=== PATIENT | female | born 1970 | race Caucasian/White ===

== ENCOUNTER 2019-11-15 07:07 | Outpatient (CLI) | payer OTHER, SELFPAY ==
--- NOTE | 2019-11-15 07:13 | MM_ITS ---
WS: [id number] BILATERAL SCREENING DIGITAL MAMMOGRAM WITH CAD HISTORY: SCREENING COMPARISON: 11/11/2018 and 11/04/2017 Bilateral CC and MLO views submitted. Computer aided detection analyzed. Breast composition: There are scattered areas of fibroglandular density. No suspicious masses, microc alcifications or architectural distortion. MM/[place] [id number] IMPRESSION: BI-RADS: 1-Negative FOLLOW UP: 1 Year Follow-up
== END 2019-11-15 07:08 | disposition home or self-care (01) ==
LOC: RADSHAW 07:09
PROVIDERS: PCP Family Medicine; Visit Provider Family Medicine
DX: Z12.31 Encounter for screening mammogram for malignant neoplasm of breast (principal)
CPT/HCPCS: 77067

== ENCOUNTER → 2019-12-30 15:29 | Outpatient (BNVA) | payer OTHER, SELFPAY | PROVIDERS: PCP Family Medicine; Referring Provider Dermatology; Visit Provider Podiatrist Foot & Ankle Surgery | DX: M21.071 Valgus deformity, not elsewhere classified, right ankle (principal) | CPT/HCPCS: 73630 ==

== ENCOUNTER 2020-10-24 07:40 | Emergency (ER) | payer OTHER, SELFPAY ==
[2020-10-24] VITALS (10 sets, daily range): BP systolic 113–148; BP diastolic 78–100; PULSE 66–90; RESP 16–18; TEMP 36.6; O2SAT 90–97; BMI 43.2
--- NOTE | 2020-10-24 08:08 | XR_ITS ---
WS: [id number] Portable AP upright chest, 10/24/2020 Clinical Data: Cough and SOB Comparison: PA and lateral chest, 07/23/2017. Findings: There is a minimal patchy opacity overlying the right diaphragm which is probably in the ri ght lower lobe. This opacity could represent minimal pneumonia. There is slight opacity overlying the left diaphragm. The upper lobes are clear. The heart is normal. No pneumothorax is seen. XR/XR chest 1V portable [id number] Impression: Bilateral basilar pulmonary opacities which could represent pneumonia.
--- NOTE | 2020-10-24 08:10 | W.ED.COVID ---
HPI - COVID General: Chief Complaint: COVID symptoms Stated Complaint: cough, Covid +, SOB Time Seen by Provider: 10/24/20 08:05 Triage information: Has fever, cough or shortness of breath. No known COVID + exposure last 14 days History of Present Illness: HPI Narrative: Patient is a 50-year-old female comes to the ED with shortness of breath upon exertion. Patient tested positive for COVID-19 last , October 19. She has generalized body aches and also a cough. She describes the cough as dry but occasionally productive with yellow sputum. She has been having nausea vomiting and diarrhea as well since Friday. She has not been able to keep any food or fluids down since Friday and has vomited multiple times for the past couple days. Denies fever, chest pains, abdominal pain or bladder symptoms. COVID 19 common symptoms: positive chills, non-productive cough, dyspnea, body aches, headache(s), nausea, vomiting and diarrhea; negative fever(s), productive cough, fatigue, throat pain or nasal congestion COVID 19 other sytmptoms: negative chest pain COVID Results: No Data to Display Review of Systems Const: Reports: chills and body aches; Denies: fever(s) or fatigue Eyes: Denies: change in vision or eye discomfort ENMT: Denies: throat pain, odynophagia, nasal discharge or nasal congestion Card: Denies: chest pain, palpitations, edema, swelling of feet/ankles, dyspnea on exertion or orthopnea Resp: Reports: dyspnea and non-productive cough; Denies: productive cough GI: Reports: nausea, vomiting and diarrhea; Denies: abdominal pain, constipation or hematochezia : Denies: flank pain, dysuria or hematuria Musc: Denies: neck pain, back pain or extremity swelling Skin/Breast: Denies: rash or new lesions Neuro: Reports: headache(s); Denies: numbness in extremities or weakness in extremities PFS ED PFSH: Medical History Patient denies significant medical history Physical Exam Const: COMMON NORMALS: no acute distress, patient oriented x3 and alert GENERAL APPEARANCE: cooperative and comfortable NUTRITIONAL APPEARANCE: obese HENMT: COMMON NORMALS: normocephalic HEAD & SCALP: normocephalic MOUTH: moist mucous membranes abnormal Details: parched THROAT: posterior oropharynx normal and uvula midline Eye: COMMON NORMALS: Equal, round and reactive pupils present PUPIL: Yes Equal, round and reactive pupils present Neck/C-Spine: COMMON NORMALS: supple GENERAL: Yes normal visual inspection Resp: COMMON NORMALS: normal respiratory effort, No retractions, No use of accessory muscles and clear to auscultation bilaterally EFFORT & INSPECTION: Yes able to speak in complete sentences, No tachypneic, No respiratory distress and No labored AUSCULTATION: clear to auscultation bilaterally Cardio: COMMON NORMALS: regular rate, regular rhythm, S1 normal heart sound present, S2 normal heart sound present, No gallops present (Cardio), No clicks present (Cardio), No murmurs present (Cardio) and Peripheral pulses 2+ throughout RATE: regular rate RHYTHM: regular rhythm HEART SOUNDS: S1 normal heart sound present and S2 normal heart sound present PERIPHERAL PULSES: Peripheral pulses 2+ throughout GI: COMMON NORMALS: Normal to inspection, nondistended, normoactive bowel sounds present, Soft to palpation, non-tender and no masses PALPATION: Yes Soft to palpation : COMMON NORMALS: Yes no CVA tenderness BLADDER/KIDNEY EXAM: Yes no CVA tenderness Back/Pelvis: COMMON NORMALS: no CVA tenderness Extremity: COMMON NORMALS: normal to inspection Neuro: COMMON NORMALS: patient oriented x3 and moves all extremities SENSORIUM/ORIENTATION: Yes alert Skin: GENERAL SKIN EXAM: dry skin Course Reevaluation(s): Reevaluation #1: After patient received IV fluids and Zofran she says she is feeling a lot better and her nausea is resolved. Patient is still at the 93 to 95% O2 saturation on 2 L via nasal cannula. I discussed with patient that I will be putting a home oxygen order in and sending her home on oxygen. Time: 10:31 Vital Signs: Vital signs: Vital Signs Temperature 97.8 F 10/24/20 07:42 Pulse Rate 66 10/24/20 14:37 Respiratory Rate 18 10/24/20 12:59 Blood Pressure 143/100 10/24/20 14:37 Pulse Oximetry 97 10/24/20 14:37 MDM - COVID MDM Narrative: Medical decision making narrative: Patient is a 50-year-old female comes to the ED with nausea, vomiting and cough. Patient tested positive for COVID-19 on October 19. Patient appears nontoxic and in no acute distress. Her oral mucous membranes appear dry. Rest of exam is benign. Patient's O2 saturation was around 92% on room air and then she was placed on 2 L via nasal cannula and her O2 went up above 96%. Labs were unremarkable. Chest x-ray showed bilateral basilar pulmonary opacities which could represent pneumonia. EKG showed normal sinus rhythm, [address] segment elevation or depression seen. Home O2 eval was performed and patient qualified for 2 L of oxygen via nasal cannula and home order of oxygen was placed and sent home with patient at discharge. Patient was given IV fluids Decadron, azithromycin and Zofran while here in the ED her symptoms improved greatly. Patient diagnosed with COVID-19 and discharged home. She was sent home with a prescription for azithromycin, Decadron 6 mg p.o. daily, Zofran and home oxygen. Return to ED precautions given. Follow-up with PCP in 5 to 7 days for reevaluation. Patient understood and agreed with plan. Lab Data: Attestation: I reviewed the patient's lab results. Labs: Lab Results 10/24/20 10/24/20 10/24/20 Range/Units 09:26 09:26 09:26 WBC 6.1 (4.0-10.0) 10^3/ uL RBC 5.49 H (4.1-5.3) 10^6/u L Hgb 15.6 H (11.5-15.3) g/dL Hct 47.7 H (37.0-47.0) % MCV 86.9 (81-99) fL MCH 28.4 (28.0-34.0) pg MCHC 32.7 (30.0-36.0) g/dL RDW 13.8 (12.1-15.1) % Plt Count 176 (130-400) 10^3/c mm MPV 10.4 (7.4-10.4) fL Neut % (Auto) 68.9 % Lymph % (Auto) 20.4 % Swain % (Auto) 9.9 % Eos % (Auto) 0.0 % Baso % (Auto) 0.5 % Neut # (Auto) 4.23 (1.8-7.7) 10^3/u L Lymph # (Auto) 1.3 (0.8-4.8) 10^3/u L Swain # (Auto) 0.6 (0.2-0.9) 10^3/u L Eos # (Auto) 0.0 (0.0-0.8) 10^3/u L Baso # (Auto) 0.0 (0.0-0.1) 10^3/u L Nucleated RBC % (a uto) 0 % Nucleated RBCs # 0.0 /100WBC Specimen Type Sample Site ABG pH (7.35-7.45) ABG pCO2 (35-45) mmHg ABG pO2 (80.0-100.0) mmH g ABG HCO3 (22-26) mmol/L ABG O2 Saturation ABG Base Excess (-2.0-2.0) mmol/ L Mark Test A-a O2 Gradient (5-10) mmHg Hematocrit (37-47) % Hgb O2 Saturation (95-100) % Carboxyhemoglobin (0.4-20.1) %THgb Methemoglobin (0.4-1.5) % Total Hemoglobin (12-16) g/dL Ionized Calcium (1.1-1.4) mmol/L O2 Delivery Device O2 Liters/Min % FiO2 % Operations Planner ID Sodium 134 L (136-145) mmol/L Potassium 3.8 (3.5-5.1) mmol/L Chloride 100 (98-107) mmol/L Carbon Dioxide 25 (22-29) mmol/L Anion Gap 12.8 (5-19) BUN 9 (6-20) mg/dL Creatinine 0.7 (0.5-0.9) mg/dL GFR Calculation 88.6 L (90-130) mL/min Glucose 121 H (65-115) mg/dL Calculated Osmolal ity 278 L (285-295) mOsm/k g Calcium 8.4 L (8.5-10.5) mg/dL Total Bilirubin 0.9 (0.15-1.2) mg/dL AST 46 H (0-32) U/L ALT 45 H (0-33) U/L Alkaline Phosphata se 96 (35-105) IU/L Troponin T Baselin e 6 (0-10) ng/L Total Protein 7.2 (6.6-8.7) g/dL Albumin 4.1 (3.5-5.2) g/dL Globulin 3.1 (1.3-4.6) g/dL Lipase 24 (13-60) U/L 10/24/20 Range/Units 10:28 WBC (4.0-10.0) 10^3/ uL RBC (4.1-5.3) 10^6/u L Hgb (11.5-15.3) g/dL Hct (37.0-47.0) % MCV (81-99) fL MCH (28.0-34.0) pg MCHC (30.0-36.0) g/dL RDW (12.1-15.1) % Plt Count (130-400) 10^3/c mm MPV (7.4-10.4) fL Neut % (Auto) % Lymph % (Auto) % Swain % (Auto) % Eos % (Auto) % Baso % (Auto) % Neut # (Auto) (1.8-7.7) 10^3/u L Lymph # (Auto) (0.8-4.8) 10^3/u L Swain # (Auto) (0.2-0.9) 10^3/u L Eos # (Auto) (0.0-0.8) 10^3/u L Baso # (Auto) (0.0-0.1) 10^3/u L Nucleated RBC % (a uto) % Nucleated RBCs # /100WBC Specimen Type Arterial Sample Site Radial, right ABG pH 7.43 (7.35-7.45) ABG pCO2 35.8 (35-45) mmHg ABG pO2 91.4 (80.0-100.0) mmH g ABG HCO3 23.5 (22-26) mmol/L ABG O2 Saturation 98.1 ABG Base Excess -0.5 (-2.0-2.0) mmol/ L Mark Test Pos A-a O2 Gradient 8.2 (5-10) mmHg Hematocrit 45.7 (37-47) % Hgb O2 Saturation 96.6 (95-100) % Carboxyhemoglobin 0.9 (0.4-20.1) %THgb Methemoglobin 0.7 (0.4-1.5) % Total Hemoglobin 14.9 (12-16) g/dL Ionized Calcium 1.2 (1.1-1.4) mmol/L O2 Delivery Device Nc O2 Liters/Min 2.0 % FiO2 28.0 % Operations Planner ID Amh Sodium 138.0 (136-145) mmol/L Potassium 3.6 (3.5-5.1) mmol/L Chloride (98-107) mmol/L Carbon Dioxide (22-29) mmol/L Anion Gap (5-19) BUN (6-20) mg/dL Creatinine (0.5-0.9) mg/dL GFR Calculation (90-130) mL/min Glucose 124.0 H (65-115) mg/dL Calculated Osmolal ity (285-295) mOsm/k g Calcium (8.5-10.5) mg/dL Total Bilirubin (0.15-1.2) mg/dL AST (0-32) U/L ALT (0-33) U/L Alkaline Phosphata se (35-105) IU/L Troponin T Baselin e (0-10) ng/L Total Protein (6.6-8.7) g/dL Albumin (3.5-5.2) g/dL Globulin (1.3-4.6) g/dL Lipase (13-60) U/L Imaging Data: CXR: Attestation: I personally reviewed and interpreted this imaging study as follows: Radiologist's impression: [address] [address] XRay Report Signed Patient: Gloria Lamas Unit #: [id number] : 1970 Age/Sex: 50 / F ADM Date: 10/24/20 Loc: ER Room/Bed: Attending Dr: Ordering Provider/Ordering MD: Dread Cline Date of Service: 10/24/20 Procedure(s): XR chest 1V portable [id number] Accession Number(s): [id number] Report Number: [id number] WS: [id number] Portable AP upright chest, 10/24/2020 Clinical Data: Cough and SOB Comparison: PA and lateral chest, 07/23/2017. Findings: There is a minimal patchy opacity overlying the right diaphragm which is probably in the right lower lobe. This opacity could represent minimal pneumonia. There is slight opacity overlying the left diaphragm. The upper lobes are clear. The heart is normal. No pneumothorax is seen. XR/XR chest 1V portable [id number] Impression: Bilateral basilar pulmonary opacities which could represent pneumonia. Dictated By: Nadine Osuna MD Signed By: Nadine Osuna MD Signed Date/Time: 10/24/20838 DD/ 6 EKG Data: EKG 1: Attestation: I personally reviewed and interpreted this EKG as follows: EKG interpretation date: 10/24/20 Interpretation: Sinus rhythm, 81 bpm, no ST segment elevation depression seen. COVID Results: No Data to Display Discharge Plan Discharge Patient Disposition: Home Clinical Impression: COVID-19 Condition: Stable Prescriptions: New azithromycin 250 mg tablet 250 mg PO DAILY 4 Days Qty: 4 RF: 0 ondansetron 4 mg tablet,disintegrating 4 mg PO Q8H PRN (Reason: nausea and vomiting) Qty: 15 RF: 0 Decadron 6 mg tablet 6 mg PO DAILY 7 Days Qty: 7 RF: 0 No Action multivitamin Tablet 1 tab PO DAILY RF: 0 ibuprofen 200 mg Tablet 400 - 600 mg PO PRN RF: 0 omeprazole 20 mg capsule,delayed release(DR/EC) 20 mg PO BEDTIME RF: 0 desvenlafaxine succinate 25 mg tablet extended release 24 hr 25 mg PO BEDTIME RF: 0 Discharge Orders: Discharge ED (Routine); Ordered 10/24/20 Ordered By: Dread Cline Other Ambulatory Orders: DME: Oxygen (Order) Location: None Selected Ordered By: Dread Cline Referrals: Carolann Valencia MD [Primary Care Provider] - Discharge Diet: Regular Discharge Activity: Increase activity as tolerated Patient Instructions: Using Oxygen at Home (ED), Viral Syndrome (ED) Activity Restrictions/Additional Instructions: Follow-up with medical provider as directed in 5 to 7 days for reevaluation. Take medications as prescribed. Make sure you drink plenty of fluids and stay hydrated. Take [id number]-[id number] Tylenol or Motrin for any pain or fevers. Wear home oxygen continuously at 2 L. Return to the ER or your medical provider if condition worsens. Please read and understand discharge instructions. Thank you for choosing [facility] for your healthcare needs today. Please realize this is an emergency room and that we are providing you with a medical screening exam and this may not be complete and all inclusive of all the testing and or work up that you may need to determine your ailment or severity of your illness. It is very important that you follow up as instructed or that you return to the Emergency Department should you have concerns or if your condition changes or worsens in any way. Coding Level of Care Code ED Mud Mixer for John Fwd Exam Comprehensive
--- NOTE | 2020-10-24 08:26 | ECG_ITS ---
[facility] Test Date: 2020-10-24 Pat Name: Gloria Lamas Department: Room: Gender: Female Milieu Technician: : 1970 Requested By: Dread Cline Order Number: [id number] Ang MD: THIEN GEORGE Measurements Intervals [place] Rate: 81 P: 27 PA: 174 QRS: -14 QRSD: 96 T: 47 QT: 365 QTc: 425 Interpretive Statements SINUS RHYTHM MINIMAL VOLTAGE CRITERIA FOR LVH, CONSIDER NORMAL VARIANT [MEETS CRITERIA IN ONE OF: R(aVL), S(V1), R(V5), R(V5/V6)+S(V1)] Compared to ECG 01/30/2017 20:52:19 No significant changes Electronically Signed On 10-24-2020 22:32:24 CDT by THIEN GEORGE [email or web address]
[2020-10-24] MEDS: acetaminophen 500 mg Tablet 1000 MG PO (09:12)
[2020-10-24] MEDS: sodium chloride 0.9% 1,000 ML 999 ML IV (09:16)
[2020-10-24] MEDS: ondansetron 2 mg/ML SDV 2 mL 4 MG IVP (09:16)
[2020-10-24 09:42] LABS: Basophils % 0.5 %; Hematocrit 47.7 % (37.0-47.0); Hemoglobin 15.6 g/dL (11.5-15.3); Lymphocytes # 1.3 10^3/uL (0.8-4.8); Lymphocytes % 20.4 %; Mean Corpuscular HGB Conc 32.7 g/dL (30.0-36.0); Mean Corpuscular Hemoglobin 28.4 pg (28.0-34.0); Mean Corpuscular Volume 86.9 fL (81-99); Mean Platelet Volume 10.4 fL (7.4-10.4); Monocytes # 0.6 10^3/uL (0.2-0.9); Monocytes % 9.9 %; Neutrophils # 4.23 10^3/uL (1.8-7.7); Neutrophils % 68.9 %; Nucleated Red Blood Cells % 0 %; Platelet Count 176 10^3/cmm (130-400); Red Blood Count 5.49 10^6/uL (4.1-5.3); Red Cell Distribution Width 13.8 % (12.1-15.1); White Blood Count 6.1 10^3/uL (4.0-10.0)
[2020-10-24 09:59] LABS: Alanine Aminotransferase 45 U/L (0-33); Albumin Level 4.1 g/dL (3.5-5.2); Alkaline Phosphatase 96 IU/L (35-105); Anion Gap 12.8 (5-19); Aspartate Amino Transferase 46 U/L (0-32); Blood Urea Nitrogen 9 mg/dL (6-20); Calcium 8.4 mg/dL (8.5-10.5); Carbon Dioxide 25 mmol/L (22-29); Chloride 100 mmol/L (98-107); Globulin 3.1 g/dL (1.3-4.6); Glomerular Filtration Rate 88.6 mL/min (90-130); Glucose 121 mg/dL (65-115); Lipase 24 U/L (13-60); Osmolality Calculated 278 mOsm/kg (285-295); Potassium 3.8 mmol/L (3.5-5.1); Sodium 134 mmol/L (136-145); Total Bilirubin 0.9 mg/dL (0.15-1.2); Total Protein 7.2 g/dL (6.6-8.7)
[2020-10-24 10:14] LABS: Troponin(5th) Baseline 6 ng/L (0-10)
[2020-10-24 10:39] LABS: ABG PCO2 35.8 mmHg (35-45); ABG PH Result 7.43 (7.35-7.45); Alveolar-Arterial Oxygen Gradi 8.2 mmHg (5-10); Arterial Blood Gas Hematocrit 45.7 % (37-47); Base Excess ABG -0.5 mmol/L (-2.0-2.0); Blood Gas Allen Test Pos; Blood Gas Operator Identificat AMH; Blood Gas Sample Site Radial, right; Blood Gas Sample Type Arterial; Carboxyhemoglobin 0.9 %THgb (0.4-20.1); HCO3 ABG 23.5 mmol/L (22-26); HGB O2 Sat 96.6 % (95-100); Ionized Calcium Level - ABG 1.2 mmol/L (1.1-1.4); Methemoglobin 0.7 % (0.4-1.5); Oxygen Device NC; Oxygen Saturation ABG 98.1; PO2 ABG 91.4 mmHg (80.0-100.0); Potassium Level - ABG 3.6 mmol/L (3.5-5.0); Total Hemoglobin 14.9 g/dL (12-16)
[2020-10-24] MEDS: dexamethasone 10 mg/mL INJ IVP (11:09)
[2020-10-24] MEDS: azithromycin 250 mg Tablet 500 MG PO (11:09)
== END 2020-10-24 14:40 | disposition home or self-care (01) ==
PROVIDERS: Emergency Provider Physician Assistant; PCP Family Medicine
DX: U07.1 COVID-19 (principal)
CPT/HCPCS: 36600; 71045; 80051; 80053; 82330; 82805; 83690; 84484; 85025; 87040; 93005; 96361; 96374; 96375; 99284; J1100; J2405; J7030; Q0144

== ENCOUNTER → 2020-11-20 11:44 | Outpatient (BNVA) | payer OTHER, SELFPAY | PROVIDERS: PCP Family Medicine; Visit Provider Podiatrist Foot & Ankle Surgery | DX: M25.571 Pain in right ankle and joints of right foot (principal); S82.441A Displaced spiral fracture of shaft of right fibula, initial encounter for closed fracture; Z20.822 Contact with and (suspected) exposure to COVID-19 | CPT/HCPCS: 73610; 87635 ==

== ENCOUNTER 2020-11-23 05:31 | Day surgery (SDC) | payer OTHER, SELFPAY ==
[2020-11-22 10:19] VITALS: BMI 39.9
--- NOTE | 2020-11-23 | SCC_ITS ---
Procedure Done: Open reduction and internal fixation right ankle fracture CPT code 02338 5 seconds of fluoroscopic guidance, for a cumulative dose of 0.16 mGy, was provided to Dr. Torres by the radiology department. C-arm images of the RIGHT ankle were saved for the patient's permanent record. [facility]
--- NOTE | 2020-11-23 06:28 | W.PM.OPSUD ---
Surgery/Procedure H&P Update DATE OF PROCEDURE: November 23, 2020 DATE H&P PERFORMED: 11/20/20 H&P UPDATE INFORMATION: I have reviewed H&P completed within last 30 days, I have examined patient prior to procedure, No changes to prior documentation and H&P is in [facility] EMR on date indicated PREOP DIAGNOSIS: Right ankle fracture PLANNED PROCEDURE: Operation Date: 11/23/20 07:00 Proposed Procedures p ORIF Ankle 44188 S82.301A(Right) - Jameel Torres DPM
--- NOTE | 2020-11-23 06:34 | XR_ITS ---
WS: [id number] Right ankle, 3 views, 11/23/2020 Clinical Data: post op Comparison: Right ankle, 11/20/2020. Findings: A lateral plate has been applied to the distal right fibula with multiple orthopedic screws. The medi al malleolus is intact. There are lateral subcutaneous surgical tomy adjacent to the fibular plate . XR/XR ankle RT min 3V* [id number] Impression: Internal fixation of distal right fibular fracture.
--- NOTE | 2020-11-23 06:35 | PM.OP ---
Operative Report Date of procedure: November 23, 2020 Pre-op Diagnosis: Right ankle fracture Post-op diagnosis: same Post-op Findings: Right distal fibular fracture Procedure Done: Open reduction and internal fixation right ankle fracture CPT code 30447 Implants: Madison variax 3 with one third tubular plate and 3.5 mm locking and nonlocking screws. Specimens removed/disposition: None Pathology: none sent Surgeon: Jameel Torres D.P.M. Automatic Beading Lathe Operator: Rody Anesthesia: MAC Estimated blood loss: Less than 10 mL Tourniquet time: 34 minutes IV fluids: None Urine output: None Complications: None Findings: None Condition: stable Disposition: PACU Brief History: Patient is a pleasant 50-year-old female who sustained a right distal fibular fracture states that she was feeling weak due to COVID-19 and lost her balance and fell injuring her right ankle. Date of injury 11/12/2020. Consulting with her I discussed both surgical and nonsurgical treatment options her strong preference was to proceed with surgical intervention and her reasoning was that she did not want to delay any bony healing and take any additional time off work. Risks include pain, bleeding, numbness, infection, delayed healing, nonhealing, hardware failure, or hardware irritation, high likelihood of posttraumatic arthritis as a result of this injury. Need for possible bracing, anti-inflammatories and possible further surgical intervention in the future. Procedure: Under mild sedation the patient was brought to the operating room and placed on the operating table in supine position. A timeout was performed. Anesthesia was then administered by the anesthesia service. Of note popliteal block to the right lower extremity was performed per anesthesia service preoperatively. Well-padded pneumatic tourniquet applied to the right high calf. Saphenous nerve block was performed utilizing one-to-one mixture 1% lidocaine 0.5 sent Marcaine plain. Right lower extremity was scrubbed, prepped and draped utilizing normal aseptic technique and Esmarch bandage was utilized and tourniquet inflated to 250 mmHg. Total tourniquet time 34 minutes. Attention was directed to the lateral aspect of the right ankle where the distal fibula was palpated, directly over the distal fibula a linear longitudinal incision was made in parallel fashion through skin and dissection carried down through subcutaneous tissue to the layer of periosteum utilizing a combination of blunt and sharp technique. Care was taken to retract and preserve neurovascular tendinous structures. All bleeders were ligated and cauterized as necessary. A periosteal incision was made the distal fibula fracture was evacuated of its hematoma utilizing curettage and saline flush. This was reduced help held with a [id number] in the anterior fragmentary screw was inserted perpendicular to the fracture site utilizing standard AO technique this was a nonlocking 18 mm 3.5 mm Madison screw. Next utilizing standard AO technique a one third tubular plate was fixated with excellent bony apposition and compression noted. Positioning confirmed with intraoperative fluoroscopy. Ankle mortise was congruent, no screws violated ankle mortise, reduction of the fracture fragment appreciated in all 3 planes. Incision was flushed with saline and periosteum closed utilizing 2-0 Vicry, l subcutaneous tissue with 3-0 Vicryl and skin utilizing skin tomy. Incision site was dressed with Adaptic, sterile 4 x 4, Kerlix, Luis wrap and cam boot with ankle in neutral position. Tourniquet was plated and a prompt hyperemic response is noted to the distal digits of the right foot. Patient tolerated the procedure and anesthesia well was transferred to the PACU with vital signs stable and vascular status intact. Following a period of postoperative monitoring she will be discharged home is to remain nonweightbearing to the right lower extremity to elevate her right lower extremity at rest was given at home discharge information and follow-up as well as contact information on how to reach me should she have questions or concerns.
[2020-11-23] MEDS: clindamycin 600 MG/50 ML PREMIX 100 MG IV (07:03)
--- NOTE | 2020-11-23 07:08 | ANES.PREANE2 ---
Pre-Anesthetic Assessment Pre-Anesthetic Assessment: Height/Weight: Height 1.65 m Weight 108.862 kg Preop Diagnosis: Right ankle fracture Proposed Procedure: Operation Date: 11/23/20 07:00 Proposed Procedures p ORIF Ankle 18018 S82.301A(Right) - Jameel Torres DPM Was Beta Kristofer taken within 24 hours: N/A Was Clonidine taken within 24 hours: N/A Last intake: Intake Last Liquid Date 11/22/20 Last Liquid Time 23:30 Last Solid Date 11/22/20 Last Solid Time 19:00 Social: Social History: No alcohol and No tobacco Exam: Pre-Anes Outpt Exam: alert, oriented x 3, clear to auscultation bilaterally and regular rate & rhythm Airway: Cervical ROM: WNL MP: 2 Dentition: False History/ROS: No significant complaints Pulmonary: Pulmonary: None reported CV/HEM: CV/HEM: None reported : : None reported Hepatic: Hepatic: None reported GI: GI: None reported Metabolic: Metabolic: Morbid obesity Musc/skel: Musc/skel: None reported Neuropsych: Neuropsych: Anxiety Anesthetic Plan: ASA status: 3 Anesthesia: Anesthesia Evaluation, Eval. for regional block and Choice Risk of > 500 ml blood loss (7ml/kg in children): No PFSH Anesthesia PFSH: Medical History Patient denies significant medical history Social History Smoking and tobacco status: never smoked Data Anesthesia Cardiac Studies: No Data to Display
[2020-11-23] MEDS: lidocaine 1% INJ 20 mL INJECTION (07:20)
[2020-11-23 08:10] VITALS: BP 137/99; PULSE 78; RESP 8; TEMP 36.3; O2SAT 98
--- NOTE | 2020-11-23 08:11 | P.PCN_ITS ---
PACU note PACU note: VSS, Good respiratory effort, report to WHEEL PRESS CLERK Post-Anesthesia Exam: awake
--- NOTE | 2020-11-23 08:11 | PM.PACU ---
PACU note PACU note: VSS, Good respiratory effort, report to PRIVATE INVESTIGATOR Post-Anesthesia Exam: awake
[2020-11-23 08:14] VITALS: BP 149/82; PULSE 81; RESP 16; O2SAT 97
[2020-11-23 08:15] VITALS: BP 133/99; PULSE 79; RESP 19; O2SAT 96
[2020-11-23 08:21] VITALS: BP 153/97; PULSE 68; RESP 17; TEMP 36.6; O2SAT 94
[2020-11-23 08:55] VITALS: BP 156/92; PULSE 72; RESP 18; O2SAT 96
[2020-11-23] MEDS: oxyCODONE-APAP 10-325 mg Tablet 1 TAB PO (09:03)
--- NOTE | 2020-11-23 15:00 | ANES.PROC ---
Anesthesia Procedures Procedure/Date: 11/23/20 Nerve Block ^: Nerve Block 1: Main Anesthesia: general anesthesia Time Out Performed: No Consent: requested by attending/covering physician, from patient, from other and patient agrees to proceed Nerve block location: popliteal (R) Anesthesia monitors applied: pulse oximetry, EKG, BP cuff and oxygen Nerve block position: supine Anesthetic Used: ropivicaine 0.5% and with decadron (4 mg) Amount of anesthesia used (mL): 30 Ultrasound used to: recognize landmarks Interscalene/Femoral BLK: 4 stimuplex 21 g needle used for position and inplane approach, visualize local anesthetic spread and no vascular puncture identified Injection: neg aspiration of heme Patient Tolerated Procedure: well and no complications Complications: none
--- NOTE | 2020-11-23 19:03 | ANE.PACU2 ---
Inpatient post-anesthesia follow up: Airway intact: Yes Vital signs: Temperature 97.9 F Pulse Rate 72 Respiratory Rate 18 Blood Pressure 156/92 Pulse Oximetry 96 Oxygen Delivery Me thod Room Air Oxygen Flow Rate Fraction of Inspir ed Oxygen Hydration adequate: Yes Nausea and vomiting: No Pain level: 2
== END 2020-11-23 09:15 | disposition home or self-care (01) ==
PROVIDERS: PCP Nurse Practitioner Family; Visit Provider Podiatrist Foot & Ankle Surgery
PROC: (CPT 27792; principal; 2020-11-23 07:00)
DX: S82.831A Other fracture of upper and lower end of right fibula, initial encounter for closed fracture (principal); W19.XXXA Unspecified fall, initial encounter; Z86.16 Personal history of COVID-19; E66.01 Morbid (severe) obesity due to excess calories; Z68.39 Body mass index [BMI] 39.0-39.9, adult
CPT/HCPCS: 27792; 73610; 76000; C1713; J3490

== ENCOUNTER → 2020-12-01 10:24 | Outpatient (BNVA) | payer OTHER, SELFPAY | PROVIDERS: PCP Nurse Practitioner Family; Visit Provider Podiatrist Foot & Ankle Surgery | DX: Z98.890 Other specified postprocedural states (principal) | CPT/HCPCS: 73610 ==

== ENCOUNTER → 2020-12-07 15:30 | Outpatient (BNVA) | payer OTHER, SELFPAY | PROVIDERS: PCP Nurse Practitioner Family; Visit Provider Podiatrist Foot & Ankle Surgery | DX: S82.301A Unspecified fracture of lower end of right tibia, initial encounter for closed fracture (principal); X58.XXXA Exposure to other specified factors, initial encounter | CPT/HCPCS: 73610 ==

== ENCOUNTER → 2020-12-15 10:08 | Outpatient (BNVA) | payer OTHER, SELFPAY | PROVIDERS: PCP Nurse Practitioner Family; Visit Provider Podiatrist Foot & Ankle Surgery | DX: S82.301A Unspecified fracture of lower end of right tibia, initial encounter for closed fracture (principal); X58.XXXA Exposure to other specified factors, initial encounter | CPT/HCPCS: 73610 ==

== ENCOUNTER → 2020-12-21 15:42 | Outpatient (BNVA) | payer OTHER, SELFPAY | PROVIDERS: PCP Nurse Practitioner Family; Visit Provider Podiatrist Foot & Ankle Surgery | DX: Z98.890 Other specified postprocedural states (principal) | CPT/HCPCS: 73610 ==

== ENCOUNTER → 2021-01-04 14:22 | Outpatient (BNVA) | payer OTHER, SELFPAY | PROVIDERS: PCP Nurse Practitioner Family; Visit Provider Podiatrist Foot & Ankle Surgery | DX: Z98.890 Other specified postprocedural states (principal); S82.51XD Displaced fracture of medial malleolus of right tibia, subsequent encounter for closed fracture with routine healing; X58.XXXA Exposure to other specified factors, initial encounter | CPT/HCPCS: 73610 ==

== ENCOUNTER 2021-01-04 14:44 | Outpatient (CLI) | payer OTHER, SELFPAY | END 2021-01-04 14:45 | disposition home or self-care (01) | LOC: SPT 14:45 | PROVIDERS: PCP Nurse Practitioner Family; Visit Provider Podiatrist Foot & Ankle Surgery | DX: Z46.89 Encounter for fitting and adjustment of other specified devices (principal); S82.51XD Displaced fracture of medial malleolus of right tibia, subsequent encounter for closed fracture with routine healing; X58.XXXD Exposure to other specified factors, subsequent encounter; Z98.890 Other specified postprocedural states | CPT/HCPCS: 97760; L1902 ==

== ENCOUNTER → 2021-10-24 10:02 | Outpatient (BNVA) | payer BC, SELFPAY | PROVIDERS: PCP Family Medicine; Visit Provider Family Medicine | DX: I10 Essential (primary) hypertension (principal); R73.09 Other abnormal glucose; E66.01 Morbid (severe) obesity due to excess calories | CPT/HCPCS: 80053; 83036; 84443; 85025 ==

== ENCOUNTER 2022-02-08 09:58 | Outpatient (CLI) | payer MEDICAID, SELFPAY ==
--- NOTE | 2022-02-08 10:09 | MM_ITS ---
WS: [id number] VIEWS: MLO and CC views both breasts. 3D digital tomosynthesis is also included in this exam. Comparison made with prior exam of 10/07/2014. 10/13/2015. 10/30/2016. 11/04/2017. 11/11/2018. A 12/07/2019. . Findings: There was no sign of mass, architectural distortion or suspicious calcification in either breast. Fa tty MM/[place] [id number] Impression: BI-RADS: 2-Benign FOLLOW-UP: 1 Year Follow-up This mammogram was also analyzed by the Computer Aided Detection System R2 Imag e Filter Helper.
== END 2022-02-08 09:59 | disposition home or self-care (01) ==
PROVIDERS: PCP Family Medicine; Visit Provider Family Medicine
DX: Z12.31 Encounter for screening mammogram for malignant neoplasm of breast (principal)
CPT/HCPCS: 77063; 77067

== ENCOUNTER 2022-02-15 08:32 | Outpatient (CLI) | payer MEDICAID, SELFPAY ==
--- NOTE | 2022-02-15 08:55 | XR_ITS ---
WS: [id number] CERVICAL SPINE 3 VIEWS HISTORY: right radicular pain in C5/C6 distribution COMPARISON: None available. Very slight straightening of the normal cervical lordosis. 1 mm retrolisthesis of C2. Mild disc space narrowing at C5-6 and C6-7. Mild facet joint arthritis and narrowing in the mid cervical spine. No fractures. Lateral masses are aligned odontoid is intact. XR/XR cervical spine 3V* [id number] IMPRESSION: Mild spondylitic changes. No fracture.
== END 2022-02-15 08:33 | disposition home or self-care (01) ==
LOC: RAD 08:36
PROVIDERS: PCP Family Medicine; Visit Provider Family Medicine
DX: M50.90 Cervical disc disorder, unspecified, unspecified cervical region (principal)
CPT/HCPCS: 72040

== ENCOUNTER 2023-02-28 08:44 | Outpatient (CLI) | payer MEDICAID, SELFPAY ==
--- NOTE | 2023-02-28 08:49 | MM_ITS ---
WS: [id number] BILATERAL SCREENING DIGITAL TOMOSYNTHESIS MAMMOGRAM WITH CAD HISTORY: SCREENING COMPARISON: 02/08/2022 and 11/15/2019 Bilateral CC and MLO views with tomosynthesis and synthetic mammography submitted. Computer aided det ection analyzed. Breast composition: There are scattered areas of fibroglandular density. No suspicious masses, microc alcifications or architectural distortion. IMPRESSION: MM/[place] [id number] BI-RADS: 1-Negative FOLLOW UP: 1 Year Follow-up
== END 2023-02-28 08:45 | disposition home or self-care (01) ==
LOC: RAD 08:44
PROVIDERS: PCP Family Medicine; Visit Provider Family Medicine
DX: Z12.31 Encounter for screening mammogram for malignant neoplasm of breast (principal)
CPT/HCPCS: 77063; 77067

== ENCOUNTER → 2023-07-01 11:02 | Outpatient (BNVA) | payer MEDICAID, SELFPAY | PROVIDERS: PCP Family Medicine; Visit Provider Family Medicine | DX: Z71.3 Dietary counseling and surveillance (principal); E66.01 Morbid (severe) obesity due to excess calories | CPT/HCPCS: 80053; 80061; 80323; 82306; 82542; 82607; 82728; 82746; 83036; 83540; 83550; 84443; 85025 ==